=== PATIENT | male | born 1960 | race Caucasian/White ===

== ENCOUNTER 2016-12-27 08:29 | Emergency (ER) | payer OTHER ==
[~2016-12-27] VITALS: Ht 170.2 cm; Wt 91.7 kg
[~2016-12-27 08:29] MED LIST: AFRIN,GENASAL D15 ML BOTH NARES; KEFLEX500 MG PO; TELMISARTAN80 MG PO; ZYRTEC10 M2 PO
[2016-12-27 09:10] LABS: CHLORIDE 107 mEq/L (99-109); POTASSIUM 4.2 mEq/L (3.7-5.4); SODIUM 140 mEq/L (136-147)
[2016-12-27 09:12] LABS: GLUCOSE 141 mg/dL (70-99)
[2016-12-27 09:13] LABS: ANION GAP 12 MEQ/L (2-14)
[2016-12-27 09:16] LABS: GFR ESTIMATE (CALCULATED) > 59 mL/min/
[2016-12-27 09:17] LABS: UREA NITROGEN (BUN) 25 mg/dL (9-23)
[2016-12-27 13:44] LABS: ADD MIUA? YES; BILIRUBIN NEGATIVE; BLOOD NEGATIVE; COLOR YELLOW ((YELLOW)); GLUCOSE (STRIP) NEGATIVE; KETONES 5; LEUKOCYTES TRACE; NITRITE NEGATIVE; PROTEIN (STRIP) 30; SPECIFIC GRAVITY 1.028 (1.000-1.030)
[2016-12-27] MEDS ORDERED: FLOMAX0.4 MG PO (13:59)
[2016-12-27] MEDS ORDERED: PERCOCET 5/31 TABLET PO (13:59)
[2016-12-27 14:01] LABS: BACTERIA NONE SEEN /HPF; EPITHELIAL CELLS NONE SEEN /HPF; MUCUS TRACE /LPF; RED BLOOD CELLS 0-5 /HPF (0-5)
[2016-12-27 14:20] VITALS: BP 113/69
== END 2016-12-27 14:21 | disposition home or self-care (01) ==
LOC: EME 08:29
PROVIDERS: Physician Assistant
DX: N20.1 Calculus of ureter (principal); I10 Essential (primary) hypertension; F17.200 Nicotine dependence, unspecified, uncomplicated
CPT/HCPCS: 74176; 80048; 81003; 99281; 99285; J1885; J2270; J3010; J7030